=== PATIENT | female | born 1950 | race Caucasian/White ===

== ENCOUNTER 2024-03-17 05:04 | Observation (INO) ==
--- NOTE | 2024-02-07 15:32 | PAT Medication Instructions ---
Medication Instructions Date of Service February 07, 2024 Home Medications apixaban 5 mg tablet (Eliquis) 5 mg PO BID atorvastatin 20 mg tablet 20 mg PO QAM citalopram 20 mg tablet 10 mg PO HS hydroxyzine HCl 25 mg tablet 25 mg PO BID PRN levothyroxine 75 mcg tablet (Synthroid) 75 mcg PO QAM lisinopril 20 mg tablet 20 mg PO HS metoprolol tartrate 25 mg tablet 12.5 mg PO BID mometasone 0.1 % topical cream 1 applic topical DAILY PRN potassium chloride 10 mEq tablet,extended release 10 meq PO BID rimegepant 75 mg disintegrating tablet (Nurtec ODT) 75 mg PO UD PRN triamcinolone acetonide 0.025 % topical cream 1 applic topical BID PRN valacyclovir 1 gram tablet (Valtrex) 1,000 mg PO UD PRN Continue as directed rimegepant 75 mg disintegrating tablet (Nurtec ODT) 75 mg PO UD PRN (if needed) valacyclovir 1 gram tablet (Valtrex) 1,000 mg PO UD PRN(if needed) ASK your prescriber and surgeon apixaban 5 mg tablet (Eliquis) 5 mg PO BID(in order for spinal or epidural anesthesia, Eliquis needs to be stopped 72 hours/3 days before surgery. Please check if okay with doctor that prescribes this to you) STOP taking 24 hours before surgery mometasone 0.1 % topical cream 1 applic topical DAILY ND triamcinolone acetonide 0.025 % topical cream 1 applic topical BID PRN DO NOT take the morning of surgery hydroxyzine HCl 25 mg tablet 25 mg PO BID PRN potassium chloride 10 mEq tablet,extended release 10 meq PO BID Take morning of surgery With a small sip of water, OTHERWISE NOTHING TO EAT OR DRINK AFTER MIDNIGHT: atorvastatin 20 mg tablet 20 mg PO QAM levothyroxine 75 mcg tablet (Synthroid) 75 mcg PO QAM metoprolol tartrate 25 mg tablet 12.5 mg PO BID Take evening before surgery citalopram 20 mg tablet 10 mg PO HS hydroxyzine HCl 25 mg tablet 25 mg PO BID PRN(if needed) lisinopril 20 mg tablet 20 mg PO HS metoprolol tartrate 25 mg tablet 12.5 mg PO BID potassium chloride 10 mEq tablet,extended release 10 meq PO BID Other Notes If you have any questions please call us at [phone] or [phone] or [phone] or [phone]
--- NOTE | 2024-02-21 14:12 | Anesthesiology Consultation ---
Date of Service February 21, 2024 Assessment & Plan (1) Encounter for pre-operative examination: - awaiting PCP response to optimization form regarding abnormal CXR, Dr. Nel Martinez [facility] [place]. Surgeon's office and patient made aware, she denied questions or concerns. - will request most recent cardiology office note (Dr. Hay Phelps). - patient reported chlorhexidine allergy at PAT appointment. This was added to allergy list and surgeon's office made aware. Patient was NOT provided with chlorhexidine wipes. - Outpatient joint assessment: Patient is currently scheduled for inpatient pathway. If re-evaluated and patient/surgeon requests outpatient pathway, patient is not acceptable candidate for outpatient joint program from anesthesia standpoint. Chart Review Chart Review: Pending: Refer to Additional Notes / Consult section and Patient seen in Pre Admission Testing Teaching & Discussion Pre-Anesthesia Teaching/Discussion Notes: Instructed NPO after midnight before surgery, except medications with 15 cc of water. Medication instructions provided according to the [facility] guidelines. History Surgery Operation Date: 03/17/24 12:15 Proposed Procedures p Left Anterior Total Hip Arthroplasty - Rafael Douglas DO Height/Weight Height: 5 ft 4 in Weight: 82.2 kg Allergies Allergy/AdvReac Type Severity Reaction Status Date / Time butorphanol [From Stadol] Allergy Severe auditory Verified 02/06/24 15:13 hallucinations dexamethasone Allergy Severe intense Verified 02/21/24 14:22 pelvic burning chlorhexidine Allergy Intermediate Itching Verified 02/21/24 14:46 morphine Allergy Intermediate itchiness Verified 02/06/24 15:13 latex Allergy Mild itching/blister Verified 02/21/24 14:22 skin ondansetron [From Zofran] AdvReac Intermediate IV Verified 02/21/24 14:40 zofran-gastroparesis per patient adhesive tape AdvReac Mild Itching Verified 02/06/24 15:15 ivory Allergy Intermediate Hives Uncoded 02/21/24 14:47 anti-depressants AdvReac Intermediate does not Uncoded 02/21/24 14:31 feel well when taking-fatigue, "brain fog" cheap metal AdvReac Intermediate blistering Uncoded 02/06/24 15:13 with itching Medications Home Medications Medication Instructions Recorded Confirmed Last Taken apixaban 5 mg tablet (Eliquis) 5 mg PO BID 02/06/24 02/06/24 Unknown atorvastatin 20 mg tablet 20 mg PO QAM 02/06/24 02/06/24 Unknown citalopram 20 mg tablet 10 mg PO HS 02/06/24 02/06/24 Unknown hydroxyzine HCl 25 mg tablet 25 mg PO BID PRN Itching 02/06/24 02/06/24 Unknown levothyroxine 75 mcg tablet 75 mcg PO QAM 02/06/24 02/06/24 Unknown (Synthroid) lisinopril 20 mg tablet 20 mg PO HS 02/06/24 02/06/24 Unknown metoprolol tartrate 25 mg tablet 12.5 mg PO BID 02/06/24 02/06/24 Unknown mometasone 0.1 % topical cream 1 applic topical DAILY PRN Dry Skin 02/06/24 02/06/24 Unknown potassium chloride 10 mEq 10 meq PO BID 02/06/24 02/06/24 Unknown tablet,extended release rimegepant 75 mg disintegrating 75 mg PO UD PRN Migraine Headache 02/06/24 02/06/24 Unknown tablet (Nurtec ODT) triamcinolone acetonide 0.025 % 1 applic topical BID PRN Dry Skin 02/06/24 02/06/24 Unknown topical cream valacyclovir 1 gram tablet 1,000 mg PO UD PRN Cold Sores 02/06/24 02/06/24 Unknown (Valtrex) ondansetron HCl 8 mg tablet 8 mg PO Q8H 02/08/24 02/08/24 Unknown Past Medical History Medical History (Updated 02/22/24 @ 08:57 by Ольга Suazo PA-C) Ankylosing spondylitis Aortic valve regurgitation Arthritis Atrial fibrillation followed by Dr. Guido>Rodessa Depression "situational" GERD (gastroesophageal reflux disease) controlled, stable per pt History of asthma as a child>no inhaler History of colitis Hyperlipidemia Hypertension controlled, stable per pt Hypothyroidism Migraine Neuropathy left lower leg>mild Post-nasal drip chronic cough Pulmonary lesion Spinal stenosis see lumbar 11/2023 MRI Tricuspid regurgitation Urinary urgency Patient denies h/o stroke, seizures, heart attack, heart failure, DM, blood clots/DVTs or blood transfusions. Exercise / Class Metabolic Activity III < 4 Walking/Shop/Light housework (denies chest discomfort or shortness of breath with usual activities) Past Family History Family History Other No family history of adverse response to anesthesia Past Surgical History Surgical History H/O hemorrhoidectomy History of anesthesia reaction nausea and headache History of appendectomy History of cardiac ablation for atrial fibrillation (01/2023) done at [facility] History of cataract surgery right/left History of cholecystectomy History of colonoscopy History of dilatation and curettage "several" History of esophagogastroduodenoscopy (EGD) History of hysterectomy History of nasal surgery History of tonsillectomy and adenoidectomy History of tooth extraction Spigelian hernia repaired Strabismus repaired>"adult onset" Past Anesthesia History No Family Hx of Anesthesia Complications History of PONV No Hx of Motion Sickness and History of PONV Social History Smoking Status: Never smoker Do You Dip or Chew Tobacco: No Hx Alcohol Use: Yes alcohol intake frequency: holidays/special occasions only substance use type: does not use Review of Systems Occasionally wakes snoring which she attributes to postnasal drip-denies snoring or witnessed apneas-no sleep study. Patient denies chest pain, shortness of breath, dyspnea on exertion, fever, chills, wheezing, or palpitations. Physical Exam Vital Signs Vitals BP 138/82 P 49 TEMP 97.8 SP02 96% on RA RESP 18 Physical Patient resting comfortably in chair in no acute distress, alert and oriented, responding appropriately throughout visit Full cervical extension range of motion without pain TMD 3.5 finger breadths Mallampati Score 2 Dentition: one cap and one lower chipped tooth; denies loose teeth, crowns, implants or bridges Lungs: normal respiratory effort. Good air movement, clear throughout to auscultation, no adventitious breath sounds Cardiac: regular rate and rhythm, no murmurs noted Carotid arteries: negative bruit bilat Lab Results Anesthesia Preop Results Results Anesthesia Widget: WBC 7.04 K/ul (4.8-10.8) 02/21/24 Hgb 11.4 g/dl (12.0-16.0) L 02/21/24 Hct 35.0 % (37.0-47.0) L 02/21/24 Plt 291 K/uL (130-400) 02/21/24 Na 140 mmol/L (136-145) 02/21/24 K 4.4 mmol/L (3.5-5.1) 02/21/24 Cl 108 mmol/L (98-107) H 02/21/24 CO2 28 mmol/L (21-32) 02/21/24 BUN 17 mg/dl (6-23) 02/21/24 Creat 0.82 mg/dl (0.6-1.2) 02/21/24 Glucose Level 86 mg/dl (70-99(Fasting)) 02/21/24 PT 10.5 Seconds (9.0-12.0) 02/21/24 PTT 28 Seconds (21-31) 02/21/24 INR 1.0 (0.9-1.1) 02/21/24 Blood Type B Positive 02/21/24 Antibody Screen NEGATIVE 02/21/24 Testing Electrocardiogram Date: 02/21/24 Sinus bradycardia, rate 49 bpm Nonspecific T wave abnormality Chest X-Ray Date: 02/21/24 1. Bilateral pulmonary venous congestion 2. Round opacity in left mid zone-will require further evaluation with CT. 3. Moderate cardiomegaly with arteriosclerotic changes in the thoracic aorta.
--- NOTE | 2024-03-13 13:27 | History & Physical Report ---
Date of Service March 13, 2024 Assessment & Plan (1) Osteoarthritis of left hip: We will proceed with a left anterior total of arthroplasty. Postoperatively she will be started on aspirin for DVT prophylaxis and kept overnight in the hospital for postop medical management. She plans to have the hospital set up home health for discharge. History of Present Illness Chief Complaint: Osteoarthritis of the left hip. Primary Care Provider: Nel Martinez MD Delfina is a pleasant 73-year-old female who has been dealing with chronic increasing left hip and groin pain. She has been seen by other providers. She has been diagnosed with osteoarthritis of her left hip. She is really struggling with her hip. She is having trouble going up and down stairs. She has constant pain. After failed conservative treatment, she has elected proceed with a left anterior total of arthroplasty. Allergies Allergy/AdvReac Type Severity Reaction Status Date / Time butorphanol [From Stadol] Allergy Severe auditory Verified 02/06/24 15:13 hallucinations dexamethasone Allergy Severe intense Verified 02/21/24 14:22 pelvic burning chlorhexidine Allergy Intermediate Itching Verified 02/21/24 14:46 morphine Allergy Intermediate itchiness Verified 02/06/24 15:13 latex Allergy Mild itching/blister Verified 02/21/24 14:22 skin ondansetron [From Zofran] AdvReac Intermediate IV Verified 02/21/24 14:40 zofran-gastroparesis per patient adhesive tape AdvReac Mild Itching Verified 02/06/24 15:15 ivory Allergy Intermediate Hives Uncoded 02/21/24 14:47 anti-depressants AdvReac Intermediate does not Uncoded 02/21/24 14:31 feel well when taking-fatigue, "brain fog" cheap metal AdvReac Intermediate blistering Uncoded 02/06/24 15:13 with itching Home Medications Medication Instructions Recorded Confirmed Type apixaban 5 mg tablet (Eliquis) 5 mg PO BID 02/06/24 02/06/24 History atorvastatin 20 mg tablet 20 mg PO QAM 02/06/24 02/06/24 History citalopram 20 mg tablet 10 mg PO HS 02/06/24 02/06/24 History hydroxyzine HCl 25 mg tablet 25 mg PO BID PRN Itching 02/06/24 02/06/24 History levothyroxine 75 mcg tablet 75 mcg PO QAM 02/06/24 02/06/24 History (Synthroid) lisinopril 20 mg tablet 20 mg PO HS 02/06/24 02/06/24 History metoprolol tartrate 25 mg tablet 12.5 mg PO BID 02/06/24 02/06/24 History mometasone 0.1 % topical cream 1 applic topical DAILY PRN Dry Skin 02/06/24 02/06/24 History potassium chloride 10 mEq 10 meq PO BID 02/06/24 02/06/24 History tablet,extended release rimegepant 75 mg disintegrating 75 mg PO UD PRN Migraine Headache 02/06/24 02/06/24 History tablet (Nurtec ODT) triamcinolone acetonide 0.025 % 1 applic topical BID PRN Dry Skin 02/06/24 02/06/24 History topical cream valacyclovir 1 gram tablet 1,000 mg PO UD PRN Cold Sores 02/06/24 02/06/24 History (Valtrex) ondansetron HCl 8 mg tablet 8 mg PO Q8H 02/08/24 02/08/24 History Past Med/Surg History Problem List Encounter for pre-operative examination Osteoarthritis of left hip Medical History Pulmonary lesion GERD (gastroesophageal reflux disease) controlled, stable per pt Tricuspid regurgitation Aortic valve regurgitation Spinal stenosis see lumbar 11/2023 MRI Ankylosing spondylitis Arthritis Urinary urgency History of colitis Hypothyroidism Depression "situational" Neuropathy left lower leg>mild Migraine Atrial fibrillation followed by Dr. Guido>Lenin Hypertension controlled, stable per pt Hyperlipidemia Post-nasal drip chronic cough History of asthma as a child>no inhaler Surgical History History of cataract surgery right/left History of anesthesia reaction nausea and headache H/O hemorrhoidectomy History of dilatation and curettage "several" History of hysterectomy History of esophagogastroduodenoscopy (EGD) History of colonoscopy Spigelian hernia repaired History of cholecystectomy History of appendectomy History of tooth extraction History of tonsillectomy and adenoidectomy History of nasal surgery Strabismus repaired>"adult onset" History of cardiac ablation for atrial fibrillation (01/2023) done at [facility] Family History Other No family history of adverse response to anesthesia Social History Smoking Status: Never smoker Second Hand Exposure: Yes (as a child); Do You Dip or Chew Tobacco: No; Hx Alcohol Use: Yes Preferred Language: Maori Assistant Maintenance Manager Required: No Beliefs That Will Affect Care: None Current Living Situation: Alone Feels Safe at Home: Yes Safety Concerns: Feels Safe At This Time Assistive Devices: Glasses Assistive Devices Comment: reading glasses Review of Systems All systems reviewed & are unremarkable except as noted in HPI & below. Physical Exam On physical exam of the left hip, she has decreased range of motion. She has pain with forced internal/external rotation. All of her pain is located in the groin.. Constitutional WD/WN, vitals as above Eyes PERRL, conjunctivae normal, anicteric sclerae ENMT external ear and nose normal, oropharynx normal Neck trachea midline, no thyromegaly Respiratory normal respiratory effort Cardiovascular RRR, no murmur, no edema Gastrointestinal (Abdomen) normal bowel sounds, soft, nontender, no hepatosplenomegaly Psychiatric A+Ox3, euthymic affect Results & Data Results & Data Laboratory Results . Diagnostic Findings X-rays of the left hip show advanced osteoarthritis with joint space narrowing, osteophyte formation, and [id number] articulation. PG Care Time/CCT Total # of Minutes Spent Total Time Spent with Patient: Total time spent is greater than 50% in coordination of care (as documented) at patient's floor/unit and/or counseling patient: Coding Level of Care Code None Diagnoses Osteoarthritis of left hip M16.12
[2024-03-17] MEDS: LR 60ML/HR IV SCH (05:38)
[2024-03-17] MEDS: ACETAMINOPHEN 500 MG TAB PO SCH ×2 (05:38→16:08)
[2024-03-17] MEDS: GABAPENTIN 300 MG CAP PO SCH (05:38)
[2024-03-17] MEDS: FAMOTIDINE 20 MG TAB PO SCH (05:38)
[2024-03-17] MEDS: LR 500ML BOLUS, THEN 15ML/HR IV SCH (05:55)
[2024-03-17] MEDS: dexAMETHasone**PF** 10 MG/ML VIAL IV SCH (06:07)
[2024-03-17] MEDS ORDERED: ROPIVACAINE 0.5% 5 MG/ML 30 ML VIAL ONE (06:23)
--- NOTE | 2024-03-17 06:34 | History & Physical Bridge Note ---
Date of Service March 17, 2024 History & Physical Bridge Note I have examined the patient, reviewed the History & Physical and in the interval since the performance of the History & Physical I have noted the following changes of clinical significance: no changes noted
[2024-03-17] MEDS ORDERED: ONDANSETRON INJ 2 MG/ML 2 ML VIAL IV PRN ×2 (06:41→10:34)
[2024-03-17] MEDS ORDERED: ePHEDrine sulfate 50 MG/ML AMP IV PRN (06:41)
[2024-03-17] MEDS ORDERED: MIDAZOLAM HCL 1 MG/ML 2ML VIAL ONE (06:41)
[2024-03-17] MEDS ORDERED: ATROPINE SULFATE 0.1 MG/ML 10ML SYR IV PRN (06:41)
[2024-03-17] MEDS ORDERED: KETOROLAC 30 MG/ML VIAL IV PRN (06:41)
[2024-03-17] MEDS ORDERED: HYDROmorphone INJ 1 MG/ML SYRINGE IV PRN (06:41)
[2024-03-17] MEDS ORDERED: PHENYLEPHRINE 100MCG/ML 5ML SYR ONE (06:43)
[2024-03-17] MEDS: TRANEXAMIC ACID 1,000 MG **IV Pre-op IV SCH (06:49)
[2024-03-17] MEDS: ceFAZolin 2000MG 2,000 MG/15 ML SYR IV SCH (06:59)
[2024-03-17] MEDS ORDERED: PROPOFOL IV EMULSION 10 MG/ML 20 ML VIAL IV ONE (07:05)
[2024-03-17] MEDS ORDERED: KETAMINE HCL 10MG/ML SYR ONE (07:05)
[2024-03-17] MEDS ORDERED: fentaNYL citrate PF 100 MCG/2 ML VIAL ONE (07:12)
[2024-03-17] MEDS: ORTHO JOINT ANESTHETIC ONE (07:35)
[2024-03-17] MEDS: TRANEXAMIC ACID 1,000 MG **IV Intra-op IV SCH (08:04)
[2024-03-17] MEDS: ROPIV 0.5% 246mg, Ketorolac 30mg, EPINEPHrine 0.5mg in NSS INFIL SCH (08:04)
--- NOTE | 2024-03-17 08:06 | Operative Report ---
PG Post Operative Report Pre & Post Diagnosis Operation Date: 03/17/24 07:00 Pre-Op Diagnosis: Osteoarthritis of left hip Post-Op Diagnosis: Osteoarthritis of left hip I identified the patient and participated in the time-out.: Yes Procedure Operation Date: 03/17/24 07:00 Actual Procedures p Left Anterior Total Hip Arthroplasty(Left) - Rafael Douglas DO Surgeon Rafael Douglas DO Robotics Mechanic Ovidio Robbins PA-C Estimated Blood Loss 150 Findings Consistent with Post-Op Diagnosis Specimens Left femoral head Description of Procedure Implants used I used a ZimmerBiomet total hip arthroplasty system with a size 2 standard offset Avenir Complete stem, a 48 mm G7 cup with a 25mm screw, an E1 polyethylene liner, a 32 mm ceramic head with a 0 neck. Delfina arrived at the hospital for the above procedure. She was seen in the preoperative holding area and the operative extremity was identified and signed. She was given a spinal anesthetic, a preoperative antibiotic, and TXA. She was then taken back to the operating room and laid on the table in the supine position. She was given basic sedation. The operative leg was secured to a Puristst leg positioner. The hip was then prepped and draped in sterile fashion. A timeout was done and the patient and the operative extremity was properly identified. An anterior approach was used. Dissection was taken down through the fascia and the tensor muscle belly was retracted laterally and the rectus was retracted medially. The circumflex vessels were identified and ligated. The capsule was then incised and tagged for later repair. The femoral neck was then cut and the femoral head was removed. The acetabulum was exposed. Time was spent doing a complete circumferential labral release. Sequential reaming of the acetabulum up to a size 47 reamer was done. Final reamings were done under fluoroscopy to ensure appropriate version. A Biomet 48 mm G7 cup was then impacted into place. A single 25 mm screw was placed. The E1 polyethylene liner was then snapped into place. Surrounding soft tissues were then injected with 100 cc of an orthopedic pain control cocktail. The proximal femur was then exposed. Sequential broaching up to a size 2 broach was done. Off that broach a size 32 head with a 0 neck was trialed. The hip was reduced and fluoroscopic images showed anatomic alignment of the implants in acceptable length. The broach was removed. The final size 2 standard offset Avenir Complete stem was then impacted into place. A ceramic 32 mm head with a 0 neck was then impacted onto the stem and the hip was reduced. Final fluoroscopic images showed anatomic alignment of the hip. The capsule was then closed with #1 Vicryl suture. A dilute betadyne lavage was then done for 3 minutes. The joint was then irrigated with normal saline solution. The fascia was closed with #1 PDS suture. Skin was closed with 2-0 Vicryl, ina, and a Silverlon dressing. She was then transferred to a hospital bed and taken to the post anesthesia care unit in stable condition. She tolerated the procedure well. Ovidio Robbins PA-C, was present for the entire procedure. He was critical for patient positioning, prepping, draping, retraction exposure, wound closure and application of sterile dressing. I attest to the content of the Intraoperative Record and any orders documented therein. Any exceptions are noted below.
[2024-03-17] MEDS ORDERED: ePHEDrine sulfate 50 MG/5 ML SYR ONE (08:11)
[2024-03-17] MEDS: PROMETHAZINE HCL INJ 25 MG/ML 1 ML VIAL ONE (08:57)
[2024-03-17] MEDS: PROMETHAZINE 6.25 MG/50.25 ML BAG IV STA (08:58)
--- NOTE | 2024-03-17 09:52 | Anesthesiology Progress Note ---
Date of Service March 17, 2024 Anesthesia Post Procedure Vital Signs Vital Signs: Temp Pulse Pulse Resp BP Pulse Ox O2 Del Method 03/17/24 09:50 59 L 22 115/61 98 Room Air 03/17/24 09:40 60 13 109/51 L 97 Room Air 03/17/24 09:30 60 14 111/55 L 99 Room Air 03/17/24 09:20 67 18 134/60 99 Room Air 03/17/24 09:10 67 16 119/63 100 Room Air 03/17/24 09:00 67 16 141/66 H 100 Oxymask 03/17/24 08:50 64 16 137/60 100 Oxymask 03/17/24 08:40 63 16 134/59 L 100 Oxymask 03/17/24 08:30 36.4 C L 68 16 123/81 100 Oxymask 03/17/24 05:39 36.4 C L 60 20 155/74 H 96 Room Air O2 Flow Rate 03/17/24 09:50 03/17/24 09:40 03/17/24 09:30 03/17/24 09:20 03/17/24 09:10 03/17/24 09:00 4 03/17/24 08:50 4 03/17/24 08:40 4 03/17/24 08:30 6 03/17/24 05:39 Pain Intensity Left Hip: Pain Intensity: 2 Transfer of Care Handoff Completed per policy Notes Mental Status: alert / awake / arousable Patient Amnestic to Procedure: Yes Nausea / Vomiting: adequately controlled Pain: adequately controlled Airway Patency, RR, SpO2: stable & adequate BP & HR: stable & adequate Hydration State: stable & adequate Neuraxial Anesthesia: was administered and sensory block is resolving Anesthetic Complications: no major complications apparent
--- NOTE | 2024-03-17 10:01 | XRay Report ---
XR hip 1V LT w pelvis CLINICAL HISTORY: Postoperative evaluation. COMPARISON: Left hip radiographs December 11, 2023. FINDINGS: Alignment of the total left hip arthroplasty is anatomic. There is no periprosthetic fract ure or unexpected radiopaque foreign body. There are skin ina. IMPRESSION: Expected findings following total left hip arthroplasty. ACT 112: Negative or not required by law. Electronically signed by: Yohan Da Silva M.D. 03/17/2024 9:24 AM
--- NOTE | 2024-03-17 10:32 | Fluoroscopy Report ---
FL hip LT 1V CLINICAL HISTORY: LEFT ANTERIOR HIPpostop COMPARISON STUDY: None FLUOROSCOPY TIME: 16 seconds FLUOROSCOPY IMAGES: 1 EXPOSURE DOSE: 1.76 mGy FINDINGS: Single C-arm spot film of the postop hip demonstrate satisfactory alignment and positioning of the prosthetic components of the total left hip arthroplasty. IMPRESSION: Satisfactory single view postop hip ACT 112: Negative or not required by law. Electronically signed by: Linda Sharma M.D. 03/17/2024 10:30 AM
[2024-03-17] MEDS ORDERED: NALOXONE HCL 0.4 MG/1 ML VIAL/CARP IV PRN (10:34)
[2024-03-17] MEDS ORDERED: MAGNESIUM HYDROXIDE SUSP 30 ML UDC PO PRN (10:34)
[2024-03-17] MEDS ORDERED: HYDROmorphone INJ 0.5 MG/0.5 ML SYR IV PRN (10:34)
[2024-03-17] MEDS ORDERED: bisacodyL 10 MG SUPP PR PRN (10:34)
[2024-03-17] MEDS: oxyCODONE HCL IR 5 MG TAB (IMMEDIATE RELEASE) PO PRN (11:43)
[2024-03-17] MEDS: DOCUSATE SODIUM 100 MG CAP PO SCH (11:46)
[2024-03-17] MEDS: KETOROLAC TROMETHAMINE 15 MG/ML VIAL IV SCH (11:46)
[2024-03-17] MEDS: METOPROLOL TARTRATE 25 MG TAB PO SCH (11:46)
[2024-03-17] MEDS: ATORVASTATIN 20 MG TAB PO SCH (11:47)
[2024-03-17] MEDS: MULTIVITAMIN TAB PO SCH (11:47)
[2024-03-17] MEDS: LEVOTHYROXINE SODIUM 75 MCG TABLET PO SCH (13:26)
[2024-03-17] MEDS: ceFAZolin 1000MG 1,000 MG/7.5 ML SYR IV SCH (16:09)
[2024-03-17] MEDS: METOCLOPRAMIDE HCL INJ 5 MG/ML 2 ML VIAL IV PRN (16:23)
[2024-03-17] MEDS: SENNA 8.6 MG TAB PO SCH (20:31)
[2024-03-17] MEDS: CITALOPRAM 20 MG TAB PO SCH (20:32)
[2024-03-17] MEDS: lisinopril 20 MG TAB PO SCH (20:33)
[2024-03-18] MEDS: APIXABAN 5 MG TABLET PO SCH (07:58)
[2024-03-18] MEDS: dexAMETHasone 4 MG TAB PO SCH (07:58)
--- NOTE | 2024-03-18 10:52 | Orthopedic Progress Note ---
Date of Service March 18, 2024 Assessment & Plan (1) Status post left hip replacement: Assessment: Status post left anterior total hip arthroplasty. Plan: Overall, she is doing quite well today with good pain control left hip. She will work with physical therapy later this morning to work on ambulation and range of motion exercises. She is on Eliquis for DVT prophylaxis which was restarted today. She can be discharged home later this morning pending formal physical therapy evaluation recommendations. Her dressing will remain in place for 7 days. She will follow-up with orthopedics in 2 weeks for postoperative management or sooner if needed. She verbalized understanding agrees with this plan. Ashley . Delfina was seen this morning resting comfortably no apparent distress. She notes that her pain is well-controlled to the left hip. She has been up and ambulating without significant issues. She has yet to work physical therapy this morning. She denies any concerns with surgical incision site. Denies any active bleeding, discharge, or signs of infection. She denies any low back pain, distal extremity pain, numbness/ting, or paresthesias. She denies any other concerns today. Review of Systems All systems reviewed & are unremarkable except as noted in HPI & below. Physical Exam . On physical examination of the left hip: Dressings are clean, dry, and intact with no signs of active bleeding, discharge, or signs of infection. Her leg is out in full extension. Limited range of motion and strength secondary to postoperative stiffness and soreness. Calf soft nontender to palpation. Negative Homans' sign. Intact plantarflexion dorsiflexion of the left ankle. +2 DP and PT pulses. Less than 2-second capillary refill. Normal sensation. Neurovascular intact. Results & Data Results & Data Laboratory Results . Diagnostic Findings . Hip X-Ray 03/17/24 07:00 FL hip LT 1V CLINICAL HISTORY: LEFT ANTERIOR HIPpostop COMPARISON STUDY: None FLUOROSCOPY TIME: 16 seconds FLUOROSCOPY IMAGES: 1 EXPOSURE DOSE: 1.76 mGy FINDINGS: Single C-arm spot film of the postop hip demonstrate satisfactory alignment and positioning of the prosthetic components of the total left hip arthroplasty. IMPRESSION: Satisfactory single view postop hip ACT 112: Negative or not required by law. Electronically signed by: Linda Sharma M.D. 03/17/2024 10:30 AM Hip/Pelvis X-Ray 03/17/24 08:34 XR hip 1V LT w pelvis CLINICAL HISTORY: Postoperative evaluation. COMPARISON: Left hip radiographs December 11, 2023. FINDINGS: Alignment of the total left hip arthroplasty is anatomic. There is no periprosthetic fracture or unexpected radiopaque foreign body. There are skin ina. IMPRESSION: Expected findings following total left hip arthroplasty. ACT 112: Negative or not required by law. Electronically signed by: Yohan Da Silva M.D. 03/17/2024 9:24 AM PG Care Time/CCT Total # of Minutes Spent Total Time Spent with Patient: Total time spent is greater than 50% in coordination of care (as documented) at patient's floor/unit and/or counseling patient: Coding Level of Care Code 72763 Post Operative Follow-Up Diagnoses Status post left hip replacement Z96.642
--- NOTE | 2024-03-18 10:53 | Discharge Summary ---
Date of Service March 18, 2024 Admission HPI (Per Admitting) Delfina is a pleasant 73-year-old female who has been dealing with chronic increasing left hip and groin pain. She has been seen by other providers. She has been diagnosed with osteoarthritis of her left hip. She is really struggling with her hip. She is having trouble going up and down stairs. She has constant pain. After failed conservative treatment, she has elected proceed with a left anterior total of arthroplasty. Admission Exam (Per Admitting) On physical exam of the left hip, she has decreased range of motion. She has pain with forced internal/external rotation. All of her pain is located in the groin.. Principal Diagnosis Same as "Discharge Diagnosis" noted below under Discharge Instructions. Discharge Exam . On physical examination of the left hip: Dressings are clean, dry, and intact with no signs of active bleeding, discharge, or signs of infection. Her leg is out in full extension. Limited range of motion and strength secondary to postoperative stiffness and soreness. Calf soft nontender to palpation. Negative Homans' sign. Intact plantarflexion dorsiflexion of the left ankle. +2 DP and PT pulses. Less than 2-second capillary refill. Normal sensation. Neurovascular intact. Discharge Data Procedures Performed Operation Date: 03/17/24 07:00 Actual Procedures p Left Anterior Total Hip Arthroplasty(Left) - Rafael Douglas DO Ordered Studies 03/17/24 07:00 FL hip LT 1V Routine Hospital Course (1) Status post left hip replacement: On March 17, 2024 Saritha arrived at [facility] and underwent a left anterior total hip arthroplasty performed by Dr. Douglas with no complications. She has spinal anesthetic. Postoperatively, she was transferred to the PACU for immediate postoperative management and then transferred to the general orthopedic floors and stable condition. Her hospital course was u neventful. On postoperative day #1, her vital signs are stable and her pain is well-controlled. She has restarted on her Eliquis for DVT prophylaxis. She participated well with physical therapy working on ambulation and range of motion exercises. She was then discharged home in stable condition. She will follow-up with orthopedics in 2 weeks for postoperative management. PG Care Time/CCT Total # of Minutes Spent Total Time Spent with Patient: Total time spent is greater than 50% in coordination of care (as documented) at patient's floor/unit and/or counseling patient: Discharge Plan Discharge Items Patient Disposition: Home - Home Health Services Reason For Visit: Left Hip Arthritis Discharge Diagnosis: Same Activity: Per Instructions section Non-emergency contact: Surgeon Call non-emergency contact if: your temperature is above 101.5, your wound has increased redness, your wound has increased drainage and your wound pain has increased Follow-up/Referrals: Nel Martinez MD [Primary Care Provider] - Diet: Regular Addtl Attending Provider Instructions: Activity and Therapy Recommendations: * If you are using [facility] then therapy will be provided at your home until they feel you have accomplished all of your goals. * If you are using [facility] then Physical Therapy will be provided until they feel you are ready to start Outpatient Physical Therapy. * If you are not using home therapy then Outpatient Physical Therapy should start about 3-5 days from your day of surgery. Therapy will last about 6-10 weeks * You were shown a series of exercises in the hospital. Do these exercises three times each day including the exercises you were shown in physical therapy. * Get up and walk several times each day.~ For the first four weeks, try not to stand or walk for more than one hour at a time. If you do stand or walk for more than one hour, you will not hurt anything, but your leg will likely swell.~~ * As you feel comfortable, you may change from the walker or crutches to a cane and~then to independent walking. Medications: * Narcotic You will likely be sent home from the hospital with a prescription for the narcotic pain medication that worked best throughout your stay. * Cefadroxil -take the antibiotic twice a day for 10 days to help prevent infection. * Aspirin Most patients will be required to take Aspirin 81mg twice a day for 6 weeks after surgery. This is obtained [id number] and a prescription is not necessary. * Other medications may be prescribed for specific circumstances. If you have any questions, please call the office at . * Resume previous home medications unless otherwise instructed TEDs/Elastic Stockings: The white elastic stockings help limit swelling and prevent blood clots from forming in your legs. The more you wear them, the more they work. Wear them for six weeks. Dressing Care: Leave the Silverlon dressing in place for 7 days. After 7 days you may remove the dressing. If the incision is not draining then you may leave the ina open to air. If there is a little bit of drainage or if the ina are getting stuck on your clothing then cover the incision with a dry dressing. The ina will be removed at your 2 week follow-up appointment. Showering: You may shower with the Silverlon dressing in place. Do not let the shower spray hit the dressing directly. Pat the Silverlon dressing dry. If the dressing becomes wet underneath, then simply remove the dressing. Keep the incision dry until you are 7 days out from the day of surgery. After 7 days you may remove the Silverlon dressing and shower with the ina exposed. Let soapy water run over the ina and pat them dry. Do not scrub or soak the incision. Diet: You may resume your previous diet. Things To Watch For: * Drainage from the incision site that occurs more than one week after your surgery. * Increased redness at the incision site. * Fever above 102 degrees Fahrenheit. * Unusual chest pain or shortness of breath. * Call [facility] at with any of the above problems Follow-Up Visit: Follow-up with Dr. Douglas's office 2-3 weeks after your day of surgery. We will remove your ina and answer any questions. If you have any additional questions or concerns, Dr Douglas is usually in the office at the same time and will be available An appointment was probably scheduled when you signed-up for surgery in the office. If you have any questions call Office Instructions: More detailed instructions as well as Frequently Asked Questions were provided in a folder by our office when you signed-up for surgery. Please review these instructions when you get home. If you have any further questions or concerns, please feel free to call the office at [phone] Pending Studies at Discharge: No Stand-Alone Forms: [facility], Smoking Cessation Medications and DC Order Prescriptions: New oxycodone 5 mg Tablet 5 mg PO Q6H PRN (Reason: pain) Qty: 30 0RF cefadroxil 500 mg capsule 500 mg PO BID 10 Days Qty: 20 0RF Continued ondansetron HCl 8 mg tablet 8 mg PO Q8H atorvastatin 20 mg Tablet 20 mg PO QAM valacyclovir [Valtrex] 1 gram Tablet 1,000 mg PO UD PRN (Reason: Cold Sores) lisinopril 20 mg Tablet 20 mg PO HS potassium chloride 10 mEq Tablet Extended Release 10 meq PO BID levothyroxine [Synthroid] 75 mcg Tablet 75 mcg PO QAM citalopram 20 mg Tablet 10 mg PO HS triamcinolone acetonide 0.025 % Cream 1 applic TOPICAL BID PRN (Reason: Dry Skin) hydroxyzine HCl 25 mg Tablet 25 mg PO BID PRN (Reason: Itching) mometasone 0.1 % Cream 1 applic TOPICAL DAILY PRN (Reason: Dry Skin) metoprolol tartrate 25 mg Tablet 12.5 mg PO BID Eliquis 5 mg Tablet 5 mg PO BID Nurtec ODT 75 mg Tablet,Disintegrating 75 mg PO UD PRN (Reason: Migraine Headache) Admission Data Admit Date/Time: 03/17/24 08:33 Attending Provider: Rafael Douglas Admit Provider: Rafael Douglas Primary Care Provider: Nel Martinez
[2024-03-18 19:10] VITALS: O2SAT 95
[2024-03-19] MEDS: hydrOXYzine HCl 25 MG TAB PO PRN (00:13)
[2024-03-19] MEDS: traMADol HCL 50 MG TABLET PO PRN (05:41)
[2024-03-19 07:24] VITALS: BP 113/58; PULSE 61; RESP 16; TEMP 98.2
--- NOTE | 2024-03-19 14:41 | Orthopedic Progress Note ---
Date of Service March 19, 2024 Assessment & Plan (1) Status post left hip replacement: Plan 73-year-old woman POD# 2 s/p left anterior total hip replacement, doing well overall. Pain is relatively well-controlled. Medically stable. Prosthetic hip is located. She is neurologically intact. Plan: 1. DVT prophylaxis w/ knee-high TEDs, SCDs, Eliquis 5 mg BID. 2. PT/OT as tolerated. WBAT on left LE. Left anterior approach total hip precautions/protocol. Encourage heel slides, SLR, full knee extension. 3. Pain control doing well with current pain regimen; has pain medicine prescription for home use. 4. Disposition - plan to D/C home w/ home health care PT; transportation to arrive at 11 AM via office of aging. 5. F/u as scheduled w/ first post-op visit. Admission and Anticipated Discharge Date Admission Date: March 17, 2024 Subjective Patient is POD# 2 s/p left anterior total hip arthroplasty by Dr. Douglas on 03/17/2024. Patient says her pain is well-controlled this morning with use of as needed pain medication. Denies CP, SOB, N/V, L LE paresthesia. She has home health care arranged to come to the house for therapy. Patient says that she will be ready to go home today; she has transportation to home arranged with the office of aging to pick her up at 11 AM today. Physical Exam Physical Exam: GENERAL: AA&Ox3, NAD. Pleasant, affect is calm. Lying in bed and appears comfortable. RESPIRATORY: Normal respiratory effort with no signs of distress. CHEST/AXILLA: Chest movement symmetrical. No deformities noted. CARDIOVASCULAR: No edema noted. SKIN: Sunshine, warm and dry. MS/EXTREMITY: Anterior hip dressing c/d/i; saturation is noted to the Silverlon dressing. Knee-high LIONEL hose donned to bilateral LE. Thigh is soft, supple. Leg lengths are equal. + ankle dorsi/plantarflexion. NVI distally. Calf soft/NT. PT/DP pulses intact, 2+. Results & Data Vital Signs (Past 12 Hours) Vital Signs Temp Pulse Resp BP Pulse Ox O2 Del Method 03/19/24 07:24 36.8 C 61 16 113/58 L 95 Room Air
== END 2024-03-19 10:45 | disposition home health service (06) ==
LOC: ASU 05:04 → 3E 05:04

== ENCOUNTER 2025-01-05 06:51 | Inpatient (IN) ==
--- NOTE | 2024-06-25 15:30 | PAT Medication Instructions ---
Medication Instructions Date of Service June 25, 2024 Home Medications Medication Instructions Recorded oxycodone 5 mg tablet 5 mg PO Q6H PRN pain #30 tabs 04/01/24 apixaban 5 mg tablet (Eliquis) 5 mg PO BID atorvastatin 20 mg tablet 20 mg PO QAM citalopram 20 mg tablet 10 mg PO HS hydroxyzine HCl 25 mg tablet 25 mg PO BID PRN Itching levothyroxine 75 mcg tablet (Synthroid) 75 mcg PO QAM lisinopril 20 mg tablet 20 mg PO HS metoprolol tartrate 25 mg tablet 12.5 mg PO HS mometasone 0.1 % topical cream 1 applic topical DAILY PRN Dry Skin potassium chloride 10 mEq tablet,extended release 10 meq PO BID rimegepant 75 mg disintegrating tablet (Nurtec ODT) 75 mg PO UD PRN Migraine Headache triamcinolone acetonide 0.025 % topical cream 1 applic topical BID PRN Dry Skin valacyclovir 1 gram tablet (Valtrex) 1,000 mg PO UD PRN Cold Sores ondansetron HCl 8 mg tablet 8 mg PO Q8H PRN n/v oxycodone 5 mg tablet 5 mg PO Q6H PRN pain cetirizine 10 mg capsule (Zyrtec) 10 mg PO DAILY PRN Allergy Symptoms MEDICATION INSTRUCTIONS: Continue as directed mometasone 0.1 % topical cream 1 applic topical DAILY PRN Dry Skin (do not apply after bathing prior to surgery) triamcinolone acetonide 0.025 % topical cream 1 applic topical BID PRN Dry Skin (do not apply after bathing prior to surgery) valacyclovir 1 gram tablet (Valtrex) 1,000 mg PO UD PRN Cold Sores ASK your prescriber and surgeon apixaban 5 mg tablet (Eliquis) 5 mg PO BID DO NOT take the morning of surgery hydroxyzine HCl 25 mg tablet 25 mg PO BID PRN Itching cetirizine 10 mg capsule (Zyrtec) 10 mg PO DAILY PRN Allergy Symptoms potassium chloride 10 mEq tablet,extended release 10 meq PO BID Take morning of surgery With a small sip of water, OTHERWISE NOTHING TO EAT OR DRINK AFTER MIDNIGHT: levothyroxine 75 mcg tablet (Synthroid) 75 mcg PO QAM atorvastatin 20 mg tablet 20 mg PO QAM rimegepant 75 mg disintegrating tablet (Nurtec ODT) 75 mg PO UD PRN Migraine Headache ondansetron HCl 8 mg tablet 8 mg PO Q8H PRN n/v oxycodone 5 mg tablet 5 mg PO Q6H PRN pain Take evening before surgery lisinopril 20 mg tablet 20 mg PO HS metoprolol tartrate 25 mg tablet 12.5 mg PO HS citalopram 20 mg tablet 10 mg PO HS hydroxyzine HCl 25 mg tablet 25 mg PO BID PRN Itching potassium chloride 10 mEq tablet,extended release 10 meq PO BID ondansetron HCl 8 mg tablet 8 mg PO Q8H PRN n/v oxycodone 5 mg tablet 5 mg PO Q6H PRN pain Other Notes If you have any questions please call us at [phone] or [phone] or [phone] or [phone]
--- NOTE | 2024-07-04 13:56 | Anesthesiology Consultation ---
Date of Service July 04, 2024 Assessment & Plan (1) Encounter for pre-operative examination: - anemia, awaiting PCP response to optimization form, Dr. Nel Martinez. PAT testing to be faxed with optimization form. Patient made aware, she denied questions or concerns. Surgeon's office made aware. - chlorhexidine allergy: chlorhexidine wipes NOT provided at PAT visit. - cardiology office visit 10/23/23: "...paroxysmal atrial fibrillation, now status post ablation therapy...clinically doing well...no medical changes for today...return in about 1 year..." - Outpatient joint assessment: Patient is currently scheduled for inpatient pathway. If re-evaluated and patient/surgeon requests outpatient pathway, patient is not advised candidate for outpatient joint program. Chart Review Chart Review: Pending: Refer to Additional Notes / Consult section and Patient seen in Pre Admission Testing Teaching & Discussion Pre-Anesthesia Teaching/Discussion Notes: Instructed NPO after midnight before surgery, except medications with 15 cc of water. Medication instructions provided according to the PAT guidelines. History Surgery Operation Date: 07/28/24 12:00 Proposed Procedures p Right Anatomic Total Shoulder Arthroplasty versus Right Reverse Total Shoulder Arthroplasty - Rafael Douglas, Height/Weight Height: 5 ft 3 in Weight: 82.9 kg Allergies Allergy/AdvReac Type Severity Reaction Status Date / Time butorphanol [From Stadol] Allergy Severe auditory Verified 06/25/24 11:35 hallucinations dexamethasone Allergy Severe intense Verified 06/25/24 11:35 pelvic burning chlorhexidine Allergy Intermediate Itching Verified 06/25/24 11:35 morphine Allergy Intermediate itchiness Verified 06/25/24 11:35 latex Allergy Mild itching/blister Verified 06/25/24 11:35 skin ondansetron [From Zofran] AdvReac Intermediate IV Verified 06/25/24 11:35 zofran-gastroparesis per patient adhesive tape AdvReac Mild Itching Verified 06/25/24 11:35 ivory Allergy Intermediate Hives Uncoded 06/25/24 11:35 anti-depressants AdvReac Intermediate does not Uncoded 06/25/24 11:35 feel well when taking-fatigue, "brain fog" cheap metal AdvReac Intermediate blistering Uncoded 06/25/24 11:35 with itching Medications Home Medications Medication Instructions Recorded Confirmed Last Taken apixaban 5 mg tablet (Eliquis) 5 mg PO BID 02/06/24 06/25/24 03/12/24 21:00 atorvastatin 20 mg tablet 20 mg PO QAM 02/06/24 06/25/24 03/15/24 09:00 citalopram 20 mg tablet 10 mg PO HS 02/06/24 06/25/24 03/15/24 21:00 hydroxyzine HCl 25 mg tablet 25 mg PO BID PRN Itching 02/06/24 06/25/24 Unknown levothyroxine 75 mcg tablet 75 mcg PO QAM 02/06/24 06/25/24 03/15/24 09:00 (Synthroid) lisinopril 20 mg tablet 20 mg PO HS 02/06/24 06/25/24 03/15/24 21:00 metoprolol tartrate 25 mg tablet 12.5 mg PO HS 02/06/24 06/25/24 03/15/24 21:00 mometasone 0.1 % topical cream 1 applic topical DAILY PRN Dry Skin 02/06/24 06/25/24 Unknown potassium chloride 10 mEq 10 meq PO BID 02/06/24 06/25/24 03/15/24 21:00 tablet,extended release rimegepant 75 mg disintegrating 75 mg PO UD PRN Migraine Headache 02/06/24 06/25/24 Unknown tablet (Nurtec ODT) triamcinolone acetonide 0.025 % 1 applic topical BID PRN Dry Skin 02/06/24 06/25/24 Unknown topical cream valacyclovir 1 gram tablet 1,000 mg PO UD PRN Cold Sores 02/06/24 06/25/24 Unknown (Valtrex) ondansetron HCl 8 mg tablet 8 mg PO Q8H PRN n/v 02/08/24 06/25/24 Unknown oxycodone 5 mg tablet 5 mg PO Q6H PRN pain #30 tabs 04/01/24 06/25/24 Unknown cetirizine 10 mg capsule (Zyrtec) 10 mg PO DAILY PRN Allergy Symptoms 06/25/24 06/25/24 Unknown Past Medical History Medical History Ankylosing spondylitis Aortic valve regurgitation Arthritis Atrial fibrillation followed by Dr. Guido>[place] Depression "situational" GERD (gastroesophageal reflux disease) controlled, stable per pt History of asthma as a child>no inhaler History of colitis more than 20 yrs ago Hyperlipidemia Hypertension controlled, stable per pt Hypothyroidism Migraine Neuropathy left lower leg>mild Nocturnal hypoxia abnormal years ago while living in [place] on home test-denies ay previous sleep apnea testing or supplemental oxygen need/use On anticoagulant therapy Eliquis daily Osteoarthritis of left hip Post-nasal drip chronic cough Pulmonary lesion Seasonal allergies Spinal stenosis see lumbar 11/2023 MRI Tricuspid regurgitation Urinary urgency Patient denies h/o stroke, seizures, heart attack, heart failure, DM, blood clots/DVTs or blood transfusions. Exercise / Class Metabolic Activity III < 4 Walking/Shop/Light housework (denies chest discomfort or shortness of breath with usual activities) Past Family History Family History Other No family history of adverse response to anesthesia Past Surgical History Surgical History H/O hemorrhoidectomy History of anesthesia reaction nausea and headache History of appendectomy History of biopsy mouth-squamous hyperplasia per cardio records History of cardiac ablation for atrial fibrillation (01/2023) done at [facility] History of cataract surgery right/left History of cholecystectomy History of colonoscopy History of dilatation and curettage "several" History of esophagogastroduodenoscopy (EGD) History of hysterectomy History of nasal surgery History of tonsillectomy and adenoidectomy History of tooth extraction Spigelian hernia repaired Status post left hip replacement 03/17/2024 [place] Strabismus repaired>"adult onset" Past Anesthesia History No Family Hx of Anesthesia Complications History of PONV No Hx of Motion Sickness and History of PONV (nausea and headache) Social History Smoking Status: Never smoker Do You Dip or Chew Tobacco: No Hx Alcohol Use: Yes ("rare") alcohol intake frequency: holidays/special occasions only Hx Substance Use: No substance use type: does not use Review of Systems Snoring, denies witnessed apneas. Patient denies chest pain, shortness of breath, dyspnea on exertion, fever, chills, cough, wheezing, or palpitations. Physical Exam Vital Signs Vitals BP 126/58 P 54 TEMP 98.1 SP02 96% on RA RESP 18 Physical Patient resting comfortably in chair in no acute distress, alert and oriented, responding appropriately throughout visit Full cervical extension range of motion without pain TMD 3.5 finger breadths Mallampati Score 2 Dentition: one cap and one lower chipped tooth; denies loose teeth, crowns, implants or bridges Lungs: normal respiratory effort. Good air movement, clear throughout to auscultation, no adventitious breath sounds Cardiac: regular rate and rhythm, no murmurs noted Carotid arteries: negative bruit bilat Lab Results Anesthesia Preop Results Results Anesthesia Widget: WBC 7.97 K/ul (4.8-10.8) 07/04/24 Hgb 10.8 g/dl (12.0-16.0) L 07/04/24 Hct 34.3 % (37.0-47.0) L 07/04/24 Plt 316 K/uL (130-400) 07/04/24 Na 139 mmol/L (136-145) 07/04/24 K 4.2 mmol/L (3.5-5.1) 07/04/24 Cl 108 mmol/L (98-107) H 07/04/24 CO2 27 mmol/L (21-32) 07/04/24 BUN 20 mg/dl (6-23) 07/04/24 Creat 0.84 mg/dl (0.6-1.2) 07/04/24 Glucose Level 91 mg/dl (70-99(Fasting)) 07/04/24 PT 10.3 Seconds (9.0-12.0) 07/04/24 PTT 28 Seconds (21-31) 07/04/24 INR 0.9 (0.9-1.1) 07/04/24 Blood Type B Positive 07/04/24 Antibody Screen NEGATIVE 07/04/24 Testing Electrocardiogram Date: 02/21/24 Sinus bradycardia, rate 49 bpm Nonspecific T wave abnormality Echocardiogram Date: 02/15/23 INO Sinus rhythm EF 60% Mild enlargement of atria, CARYN is free of thrombus Concentric LVH No wall motion abnormalities Mild aortic regurgitation, trileaflet aortic valve. No aortic stenosis Mild atherosclerosis of the ascending and descending aorta No evidence of ASD or PFO Other Testing Chest CT 02/28/24 Multiple scattered calcified granulomas, likely identified on radiograph. No suspicious nodule.
--- NOTE | 2024-12-10 12:44 | PAT Medication Instructions ---
Medication Instructions Date of Service December 10, 2024 Home Medications Medication Instructions Recorded oxycodone 5 mg tablet 5 mg PO Q6H PRN pain #30 tabs 04/01/24 apixaban 5 mg tablet (Eliquis) 5 mg PO BID atorvastatin 20 mg tablet 20 mg PO QAM citalopram 20 mg tablet 10 mg PO HS hydroxyzine HCl 25 mg tablet 25 mg PO BID PRN levothyroxine 75 mcg tablet (Synthroid) 75 mcg PO QAM lisinopril 20 mg tablet 20 mg PO HS metoprolol tartrate 25 mg tablet 12.5 mg PO HS mometasone 0.1 % topical cream 1 applic topical DAILY PRN rimegepant 75 mg disintegrating tablet (Nurtec ODT) 75 mg PO UD PRN triamcinolone acetonide 0.025 % topical cream 1 applic topical BID PRN valacyclovir 1 gram tablet (Valtrex) 1,000 mg PO UD PRN ondansetron HCl 8 mg tablet 8 mg PO Q8H PRN oxycodone 5 mg tablet 5 mg PO Q6H PRN cetirizine 10 mg capsule (Zyrtec) 10 mg PO DAILY PRN Continue as directed rimegepant 75 mg disintegrating tablet (Nurtec ODT) 75 mg PO UD PRN(if needed) valacyclovir 1 gram tablet (Valtrex) 1,000 mg PO UD PRN(if needed) ASK your prescriber and surgeon apixaban 5 mg tablet (Eliquis) 5 mg PO BID(in order for spinal or epidural anesthesia, Eliquis needs to be stopped 72 hours/3 days before surgery. Please check if okay with doctor that prescribes this to you) STOP taking 24 hours before surgery mometasone 0.1 % topical cream 1 applic topical DAILY PRN triamcinolone acetonide 0.025 % topical cream 1 applic topical BID PRN DO NOT take the morning of surgery hydroxyzine HCl 25 mg tablet 25 mg PO BID PRN cetirizine 10 mg capsule (Zyrtec) 10 mg PO DAILY PRN Take morning of surgery With a small sip of water, OTHERWISE NOTHING TO EAT OR DRINK AFTER MIDNIGHT: atorvastatin 20 mg tablet 20 mg PO QAM levothyroxine 75 mcg tablet (Synthroid) 75 mcg PO QAM ondansetron HCl 8 mg tablet 8 mg PO Q8H PRN(if needed) oxycodone 5 mg tablet 5 mg PO Q6H PRN(if needed) Take evening before surgery citalopram 20 mg tablet 10 mg PO HS hydroxyzine HCl 25 mg tablet 25 mg PO BID PRN(if needed) lisinopril 20 mg tablet 20 mg PO HS metoprolol tartrate 25 mg tablet 12.5 mg PO HS ondansetron HCl 8 mg tablet 8 mg PO Q8H PRN(if needed) oxycodone 5 mg tablet 5 mg PO Q6H PRN(if needed) Other Notes If you have any questions please call us at [phone] or [phone] or [phone] or [phone]
--- NOTE | 2024-12-10 13:02 | Anesthesiology Consultation ---
Date of Service December 10, 2024 Assessment & Plan (1) Encounter for pre-operative examination: - cardiology office visit 12/11/24: "...hypertension. atrial fibrillation status post ablation...routine evaluation...doing well...doing excellent. No medical changes..." - internal medicine office visit 11/12/24: "...doing well...some mouth soreness...nystatin swish and spit...no change to medications at this time...return in about 6 months..." - chlorhexidine allergy: chlorhexidine wipes NOT provided at PAT visit. - Outpatient joint assessment: Patient is currently scheduled for inpatient pathway. If re-evaluated and patient/surgeon requests outpatient pathway, patient is not advised candidate for outpatient joint program. Chart Review Chart Review: Acceptable Risk for Surgery and Patient seen in Pre Admission Testing Teaching & Discussion Pre-Anesthesia Teaching/Discussion Notes: Instructed NPO after midnight before surgery, except medications with 15 cc of water. Medication instructions provided according to the PAT guidelines. History Surgery Operation Date: 07/28/24 12:00 Proposed Procedures p Right Anatomic Total Shoulder Arthroplasty versus Right Reverse Total Shoulder Arthroplasty - Rafael Douglas DO Operation Date: 01/05/25 08:00 Proposed Procedures p Right Total Hip Arthroplasty Anterior - Rafael Douglas DO Height/Weight Height: 5 ft 4 in Weight: 78 kg Allergies Allergy/AdvReac Type Severity Reaction Status Date / Time butorphanol [From Stadol] Allergy Severe auditory Verified 12/10/24 12:32 hallucinations dexamethasone Allergy Severe intense Verified 12/10/24 12:32 pelvic burning chlorhexidine Allergy Intermediate Itching Verified 12/10/24 12:32 morphine Allergy Intermediate itchiness Verified 12/10/24 12:32 latex Allergy Mild itching/blister Verified 12/10/24 12:32 skin ondansetron [From Zofran] AdvReac Intermediate IV Verified 12/10/24 12:32 zofran-gastroparesis per patient adhesive tape AdvReac Mild Itching Verified 12/10/24 12:32 ivory Allergy Intermediate Hives Uncoded 12/10/24 12:32 anti-depressants AdvReac Intermediate does not Uncoded 12/10/24 12:32 feel well when taking-fatigue, "brain fog" cheap metal AdvReac Intermediate blistering Uncoded 12/10/24 12:32 with itching Medications Home Medications Medication Instructions Recorded Confirmed Last Taken apixaban 5 mg tablet (Eliquis) 5 mg PO BID 02/06/24 12/10/24 03/12/24 21:00 atorvastatin 20 mg tablet 20 mg PO QAM 02/06/24 12/10/24 03/15/24 09:00 citalopram 20 mg tablet 10 mg PO HS 02/06/24 12/10/24 03/15/24 21:00 hydroxyzine HCl 25 mg tablet 25 mg PO BID PRN Itching 02/06/24 12/10/24 Unknown levothyroxine 75 mcg tablet 75 mcg PO QAM 02/06/24 12/10/24 03/15/24 09:00 (Synthroid) lisinopril 20 mg tablet 20 mg PO HS 02/06/24 12/10/24 03/15/24 21:00 metoprolol tartrate 25 mg tablet 12.5 mg PO HS 02/06/24 12/10/24 03/15/24 21:00 mometasone 0.1 % topical cream 1 applic topical DAILY PRN Dry Skin 02/06/24 12/10/24 Unknown rimegepant 75 mg disintegrating 75 mg PO UD PRN Migraine Headache 02/06/24 12/10/24 Unknown tablet (Nurtec ODT) triamcinolone acetonide 0.025 % 1 applic topical BID PRN Dry Skin 02/06/24 12/10/24 Unknown topical cream valacyclovir 1 gram tablet 1,000 mg PO UD PRN Cold Sores 02/06/24 12/10/24 Unknown (Valtrex) ondansetron HCl 8 mg tablet 8 mg PO Q8H PRN n/v 02/08/24 12/10/24 Unknown oxycodone 5 mg tablet 5 mg PO Q6H PRN pain #30 tabs 04/01/24 12/10/24 Unknown cetirizine 10 mg capsule (Zyrtec) 10 mg PO DAILY PRN Allergy Symptoms 06/25/24 12/10/24 Unknown Past Medical History Medical History Ankylosing spondylitis Aortic valve regurgitation Arthritis Atrial fibrillation followed by Dr. Hay>Joseph > controlled since ablation per pt Depression "situational" GERD (gastroesophageal reflux disease) controlled, stable per pt History of asthma as a child>no inhaler History of colitis more than 20 yrs ago Hyperlipidemia Hypertension controlled, stable per pt Hypothyroidism Migraine Neuropathy left lower leg>mild Nocturnal hypoxia abnormal years ago while living in [place] on home test-denies ay previous sleep apnea testing or supplemental oxygen need/use On anticoagulant therapy Eliquis daily Osteoarthritis of left hip Post-nasal drip chronic cough Pulmonary lesion Seasonal allergies Spinal stenosis see lumbar 11/2023 MRI Tricuspid regurgitation Urinary urgency Patient denies h/o stroke, seizures, heart attack, heart failure, DM, blood clots/DVTs or blood transfusions. Exercise / Class Metabolic Activity III < 4 Walking/Shop/Light housework (less than 4 steps in home, denies chest discomfort or shortness of breath with usual activities) Past Family History Family History Other No family history of adverse response to anesthesia Past Surgical History Surgical History H/O hemorrhoidectomy History of anesthesia reaction nausea and headache History of appendectomy History of biopsy mouth-squamous hyperplasia per cardio records History of cardiac ablation for atrial fibrillation (01/2023) done at [facility] History of cataract surgery right/left History of cholecystectomy History of colonoscopy History of dilatation and curettage "several" History of esophagogastroduodenoscopy (EGD) History of hysterectomy History of nasal surgery History of tonsillectomy and adenoidectomy History of tooth extraction Spigelian hernia repaired Status post left hip replacement 03/17/2024 [place] Strabismus repaired>"adult onset" Past Anesthesia History No Hx of Anesthesia Complications and No Family Hx of Anesthesia Complications History of PONV No Hx of Motion Sickness and History of PONV Social History Smoking Status: Never smoker Do You Dip or Chew Tobacco: No Hx Alcohol Use: No Hx Substance Use: No substance use type: does not use Review of Systems Patient denies chest pain, shortness of breath, dyspnea on exertion, fever, chills, cough, wheezing, or palpitations. Physical Exam Vital Signs Vitals BP 136/68 P 55 TEMP 98.3 SP02 98% on RA RESP 18 Physical Patient resting comfortably in chair in no acute distress, alert and oriented, responding appropriately throughout visit Full cervical extension range of motion without pain TMD 3.5 finger breadths Mallampati Score 3 Dentition: chipped teeth and one cap, denies chipped or loose teeth, crowns, implants or bridges Lungs: normal respiratory effort. Good air movement, clear throughout to auscultation, no adventitious breath sounds Cardiac: regular rate and rhythm, 2/6 diastolic murmur, no gallops or rubs Carotid arteries: negative bruit bilat Lab Results Anesthesia Preop Results Results Anesthesia Widget: WBC 6.45 K/ul (4.8-10.8) 12/10/24 Hgb 12.0 g/dl (12.0-16.0) 12/10/24 Hct 35.5 % (37.0-47.0) L 12/10/24 Plt 257 K/uL (130-400) 12/10/24 Na 141 mmol/L (136-145) 12/10/24 K 3.9 mmol/L (3.5-5.1) 12/10/24 Cl 107 mmol/L (98-107) 12/10/24 CO2 26 mmol/L (21-32) 12/10/24 BUN 15 mg/dl (6-23) 12/10/24 Creat 0.88 mg/dl (0.6-1.2) 12/10/24 Glucose Level 98 mg/dl (70-99(Fasting)) 12/10/24 PT 10.9 Seconds (9.0-12.0) 12/10/24 PTT 28 Seconds (21-31) 12/10/24 INR 1.0 (0.9-1.1) 12/10/24 Blood Type B Positive 12/10/24 Antibody Screen NEGATIVE 12/10/24 Testing Electrocardiogram Date: 02/21/24 Sinus bradycardia, rate 49 bpm Nonspecific T wave abnormality Echocardiogram Date: 02/15/23 INO Sinus rhythm EF 60% Mild enlargement of atria, CARYN is free of thrombus Concentric LVH No wall motion abnormalities Mild aortic regurgitation, trileaflet aortic valve. No aortic stenosis Mild atherosclerosis of the ascending and descending aorta No evidence of ASD or PFO Other Testing Chest CT 02/28/24 Multiple scattered calcified granulomas, likely identified on radiograph. No suspicious nodule.
--- NOTE | 2025-01-05 06:43 | History & Physical Bridge Note ---
Date of Service January 05, 2025 History & Physical Bridge Note I have examined the patient, reviewed the History & Physical and in the interval since the performance of the History & Physical I have noted the following changes of clinical significance: no changes noted
[~2025-01-05 06:51] MED LIST: BUPIVACAINE 0.5 % 5 MG/1 ML PF 10ML VIAL ONE; MIDAZOLAM HCL 1 MG/ML 2ML VIAL ONE; dexAMETHasone**PF** 10 MG/ML VIAL IV SCH
[2025-01-05] MEDS ORDERED: KETAMINE HCL 10MG/ML SYR ONE (06:53)
[2025-01-05] MEDS ORDERED: PROPOFOL IV EMULSION 10 MG/ML 20 ML VIAL IV ONE ×3 (06:54→09:28)
[2025-01-05] MEDS ORDERED: PHENYLEPHRINE HCL 10 MG/ML VIAL ONE (06:54)
[2025-01-05] MEDS: FAMOTIDINE 20 MG TAB PO SCH (07:34)
[2025-01-05] MEDS ORDERED: ATROPINE SULFATE 0.1 MG/ML 10ML SYR IV PRN (07:34)
[2025-01-05] MEDS: ACETAMINOPHEN 500 MG TAB PO SCH ×2 (07:34→13:27)
[2025-01-05] MEDS: GABAPENTIN 300 MG CAP PO SCH (07:34)
[2025-01-05] MEDS ORDERED: ONDANSETRON INJ 2 MG/ML 2 ML VIAL IV PRN (07:34)
[2025-01-05] MEDS: LR 60ML/HR IV SCH (07:55)
[2025-01-05] MEDS: TRANEXAMIC ACID 1,000 MG **IV Pre-op IV SCH (07:56)
[2025-01-05] MEDS: ORTHO JOINT ANESTHETIC ONE (08:50)
[2025-01-05] MEDS: ROPIV 0.5% 246mg, Ketorolac 30mg, EPINEPHrine 0.5mg in NSS INFIL SCH (09:08)
--- NOTE | 2025-01-05 09:19 | Operative Report ---
PG Post Operative Report Pre & Post Diagnosis Operation Date: 01/05/25 08:00 Pre-Op Diagnosis: Osteoarthritis of the right hip Post-Op Diagnosis: Osteoarthritis of the right hip I identified the patient and participated in the time-out.: Yes Procedure Operation Date: 01/05/25 08:00 Actual Procedures p Right Anterior Total Hip Arthroplasty(Right) - Rafael Douglas DO Surgeon Rafael Douglas DO Table Top Tile Setter Kimi Ledbetter PA-C Estimated Blood Loss 150 Findings Consistent with Post-Op Diagnosis Specimens Right femoral head Description of Procedure Implants used I used a ZimmerBiomet total hip arthroplasty system with a size 2 standard offset Z1 stem, a 48 mm G7 cup, an E1 polyethylene liner, a 32 mm ceramic head w ith a 0 neck. Delfina arrived at the hospital for the above procedure. She was seen in the preoperative holding area and the operative extremity was identified and signed. She was given a spinal anesthetic, a preoperative antibiotic, and TXA. She was then taken back to the operating room and laid on the table in the supine position. She was given basic sedation. The operative leg was secured to a Puristst leg positioner. The hip was then prepped and draped in sterile fashion. A timeout was done and the patient and the operative extremity was properly identified. An anterior approach was used. Dissection was taken down through the fascia and the tensor muscle belly was retracted laterally and the rectus was retracted medially. The circumflex vessels were identified and ligated. The capsule was then incised and tagged for later repair. The femoral neck was then cut and the femoral head was removed. The acetabulum was exposed. Time was spent doing a complete circumferential labral release. Sequential reaming of the acetabulum up to a size 47 reamer was done. Final reamings were done under fluoroscopy to ensure appropriate version. A Biomet 48 mm G7 cup was then impacted into place. The E1 polyethylene liner was then snapped into place. Surrounding soft tissues were then injected with 100 cc of an orthopedic pain control cocktail. The proximal femur was then exposed. Sequential broaching up to a size 2 broach was done. Off that broach a size 32 head with a 0 neck was trialed. The hip was reduced and fluoroscopic images showed anatomic alignment of the implants in acceptable length. The broach was removed. The final size 2 standard offset Z1 stem was then impacted into place. A ceramic 32 mm head with a 0 neck was then impacted onto the stem and the hip was reduced. Final fluoroscopic images showed anatomic alignment of the hip. The capsule was then closed with #1 Vicryl suture. A dilute betadyne lavage was then done for 3 minutes. The joint was then irrigated with normal saline solution. The fascia was closed with #1 PDS suture. Skin was closed with 2-0 Vicryl, Gunlock Zipline, and a Silverlon dressing. She was then transferred to a hospital bed and taken to the post anesthesia care unit in stable condition. She tolerated the procedure well. Kimi Ledbetter PA-C, was present for the entire procedure. He was critical for patient positioning, prepping, draping, retraction exposure, wound closure and application of sterile dressing. I attest to the content of the Intraoperative Record and any orders documented therein. Any exceptions are noted below.
--- NOTE | 2025-01-05 10:29 | XRay Report ---
XR hip 1V RT w pelvis CLINICAL HISTORY: IN PACU - Post Surgical COMPARISON: 03/17/2024 FINDINGS: Bilateral hip prostheses show no hardware complication. There is expected soft tissue gas on the right. IMPRESSION: Unremarkable postoperative exam. ACT 112: Negative or not required by law. Electronically signed by: Parviz Hankins M.D. 01/05/2025 10:27 AM
--- NOTE | 2025-01-05 10:29 | Fluoroscopy Report ---
FL hip RT 1V CLINICAL HISTORY: RT ANTERIOR HIP COMPARISON STUDY: None FLUOROSCOPY TIME: 10 seconds FLUOROSCOPY IMAGES: 1 EXPOSURE DOSE: 1.4 mGy FINDINGS: Fluoroscopy was provided for right hip prosthesis. IMPRESSION: Intraoperative fluoroscopy. ACT 112: Negative or not required by law. Electronically signed by: Parviz Hankins M.D. 01/05/2025 10:28 AM
[2025-01-05] MEDS ORDERED: TRIAMCINOLONE ACET 0.025% CR 15 GM TUBE TOP PRN (12:20)
[2025-01-05] MEDS ORDERED: NALOXONE HCL 0.4 MG/1 ML VIAL/CARP IV PRN (12:20)
[2025-01-05] MEDS ORDERED: ALUMINUM/MAGNESIUM SUSP 30 ML UDC PO PRN (12:20)
[2025-01-05] MEDS ORDERED: MAGNESIUM HYDROXIDE SUSP 30 ML UDC PO PRN (12:20)
[2025-01-05] MEDS ORDERED: METOCLOPRAMIDE HCL INJ 5 MG/ML 2 ML VIAL IV PRN (12:20)
[2025-01-05] MEDS ORDERED: CETIRIZINE HCL 10 MG TABLET PO PRN (12:31)
[2025-01-05] MEDS ORDERED: TRIAMCINOLONE ACET 0.1% CR 15 GM TUBE EXT PRN (12:32)
[2025-01-05] MEDS: LR 500ML BOLUS, THEN 15ML/HR IV SCH (12:47)
[2025-01-05] MEDS: SODIUM CHLORIDE 0.9% 1,000 ML IV SCH (13:26)
[2025-01-05] MEDS: KETOROLAC TROMETHAMINE 15 MG/ML VIAL IV SCH (13:28)
--- NOTE | 2025-01-05 13:49 | Anesthesiology Progress Note ---
Date of Service January 05, 2025 Anesthesia Post Procedure Vital Signs Vital Signs: Temp Pulse Pulse Resp BP BP Pulse Ox 01/05/25 13:10 36.3 C L 66 14 120/73 100 01/05/25 12:20 36.7 C 60 18 134/80 100 01/05/25 12:10 36.5 C 60 14 132/76 100 01/05/25 11:45 61 16 140/64 100 01/05/25 11:30 55 L 18 127/65 100 01/05/25 11:15 36.5 C 60 21 111/78 100 01/05/25 11:00 60 16 121/62 100 01/05/25 10:50 62 15 145/62 H 100 01/05/25 10:40 62 18 119/79 100 01/05/25 10:30 72 21 138/100 100 01/05/25 10:20 67 28 H 121/57 L 100 01/05/25 10:10 70 17 122/58 L 100 01/05/25 10:00 68 20 120/51 L 100 01/05/25 09:50 36 C L 67 23 128/52 L 100 01/05/25 07:03 36.6 C 66 20 165/93 H 97 O2 Del Method O2 Flow Rate 01/05/25 13:10 Room Air 01/05/25 12:20 Nasal Cannula 01/05/25 12:10 Nasal Cannula 3 01/05/25 11:45 Nasal Cannula 2 01/05/25 11:30 Nasal Cannula 2 01/05/25 11:15 Nasal Cannula 2 01/05/25 11:00 Nasal Cannula 2 01/05/25 10:50 Nasal Cannula 2 01/05/25 10:40 Nasal Cannula 2 01/05/25 10:30 Nasal Cannula 2 01/05/25 10:20 Nasal Cannula 2 01/05/25 10:10 Nasal Cannula 2 01/05/25 10:00 Room Air 01/05/25 09:50 Room Air 01/05/25 07:03 Room Air Pain Intensity Head: Pain Intensity: 2 Transfer of Care Handoff Completed per policy Notes Mental Status: alert / awake / arousable Patient Amnestic to Procedure: Yes Nausea / Vomiting: adequately controlled Pain: adequately controlled Airway Patency, RR, SpO2: stable & adequate BP & HR: stable & adequate Hydration State: stable & adequate Anesthetic Complications: no major complications apparent
[2025-01-05] MEDS: ONDANSETRON INJ 2 MG/ML 2 ML VIAL IV PRN (14:54)
[2025-01-05] MEDS: SENNA 8.6 MG TAB PO SCH (20:28)
[2025-01-05] MEDS: DOCUSATE SODIUM 100 MG CAP PO SCH (20:28)
[2025-01-05] MEDS: CITALOPRAM 20 MG TAB PO SCH (20:28)
[2025-01-05] MEDS: METOPROLOL TARTRATE 25 MG TAB PO SCH (20:28)
[2025-01-06] MEDS: ONDANSETRON 4 MG OD TAB PO PRN (03:51)
[2025-01-06] MEDS ORDERED: PROMETHAZINE HCL 25 MG TAB PO PRN (07:48)
--- NOTE | 2025-01-06 08:45 | Orthopedic Progress Note ---
Date of Service January 06, 2025 Assessment & Plan (1) S/P total right hip arthroplasty: * Continue Current Treatment * Disposition: home * Daily treatment: Physical Therapy/ Occupational Therapy per protocol * Weight bearing status: WBAT, no precautions * Continue to monitor for ABLA * Pain control * DVT prophylaxis, ASA/ * Office/hospital f/u 2 weeks for progress check and staple/suture removal * Plan for discharge today pending PT/OT clearance Subjective .Active Problems: S/p right PAWAN POD 1 74 y/o female s/p right PAWAN. Doing well overall, pain managed and improved function. Quite nauseous this morning. Denies fever/chills, chest pain/SOB, vo miting. Otherwise no complaints. Review of Systems All systems reviewed & are unremarkable except as noted in HPI & below. Physical Exam . * General: Alert and oriented, no acute distress * Constitutional: well-developed, well-nourished. * Respiratory: Normal respiratory effort, no distress * Gastrointestinal: No tenderness to palpation, no rigidity or guarding. * Skin: No rash or lesion. * Neurologic: Grossly normal * Musculoskeletal: Right hip surgical dressing CDI, not removed for exam. Otherwise no obvious deformity or overlying skin changes. Diffuse TTP proximal thigh and hip region. Otherwise no specific tenderness of distal thigh, lower leg, foot/ankle. AROM hip flexion intact. AROM foot/ankle intact. Sensation intact plantar/dorsal foot. Brisk capillary refill. Results & Data Results & Data Laboratory Results . Diagnostic Findings . Hip X-Ray 01/05/25 00:00 FL hip RT 1V CLINICAL HISTORY: RT ANTERIOR HIP COMPARISON STUDY: None FLUOROSCOPY TIME: 10 seconds FLUOROSCOPY IMAGES: 1 EXPOSURE DOSE: 1.4 mGy FINDINGS: Fluoroscopy was provided for right hip prosthesis. IMPRESSION: Intraoperative fluoroscopy. ACT 112: Negative or not required by law. Electronically signed by: Parviz Hankins M.D. 01/05/2025 10:28 AM Hip/Pelvis X-Ray 01/05/25 09:57 XR hip 1V RT w pelvis CLINICAL HISTORY: IN PACU - Post Surgical COMPARISON: 03/17/2024 FINDINGS: Bilateral hip prostheses show no hardware complication. There is expected soft tissue gas on the right. IMPRESSION: Unremarkable postoperative exam. ACT 112: Negative or not required by law. Electronically signed by: Parviz Hankins M.D. 01/05/2025 10:27 AM PG Care Time/CCT Total # of Minutes Spent Total Time Spent with Patient: Total time spent is greater than 50% in coordination of care (as documented) at patient's floor/unit and/or counseling patient: Coding Level of Care Code 82660 Post Operative Follow-Up Diagnoses S/P total right hip arthroplasty Z96.641
[2025-01-06] MEDS: LEVOTHYROXINE SODIUM 75 MCG TABLET PO SCH (09:53)
[2025-01-06] MEDS: PROMETHAZINE 25 MG/51 ML BAG IV PRN (11:16)
[2025-01-06] MEDS: APIXABAN 5 MG TABLET PO SCH (11:54)
[2025-01-06] MEDS: ATORVASTATIN 20 MG TAB PO SCH (11:55)
[2025-01-06] MEDS: MULTIVITAMIN TAB PO SCH (11:55)
[2025-01-06] MEDS: RIMEGEPANT SULFATE 75 MG OD TAB PO PRN (15:30)
--- NOTE | 2025-01-07 09:15 | Orthopedic Progress Note ---
Date of Service January 07, 2025 Assessment & Plan (1) S/P total right hip arthroplasty: * Continue Current Treatment * Disposition: home * Daily treatment: Physical Therapy/ Occupational Therapy per protocol * Weight bearing status: WBAT, no precautions * Continue to monitor for ABLA * Pain control * DVT prophylaxis, ASA * Office/hospital f/u 2 weeks for progress check and staple/suture removal * Plan for discharge today pending PT/OT clearance Subjective Active Problems: S/p right PAWAN POD 2 74 y/o female s/p right PAWAN. Doing well overall, pain managed and improved function. Nausea improved, but anxious about getting moving with PT. Denies fever/chills, chest pain/SOB, vomiting. Otherwise no complaints. Review of Systems All systems reviewed & are unremarkable except as noted in HPI & below. Physical Exam * Musculoskeletal: Right hip surgical dressing CDI, not removed for exam. Otherwise no obvious deformity or overlying skin changes. Diffuse TTP proximal thigh and hip region. Otherwise no specific tenderness of distal thigh, lower leg, foot/ankle. AROM hip flexion intact. AROM foot/ankle intact. Sensation intact plantar/dorsal foot. Brisk capillary refill. Results & Data Results & Data Laboratory Results . Diagnostic Findings . PG Care Time/CCT Total # of Minutes Spent Total Time Spent with Patient: Total time spent is greater than 50% in coordination of care (as documented) at patient's floor/unit and/or counseling patient: Coding Level of Care Code 69741 Post Operative Follow-Up Diagnoses S/P total right hip arthroplasty Z96.641
[2025-01-07] MEDS: diphenhydrAMINE Capsule 25 MG CAP PO PRN (18:10)
--- NOTE | 2025-01-08 09:08 | Orthopedic Progress Note ---
Date of Service January 08, 2025 Assessment & Plan (1) S/P total right hip arthroplasty: * Continue Current Treatment * Disposition: home * Daily treatment: Physical Therapy/ Occupational Therapy per protocol * Weight bearing status: WBAT, no precautions * Continue to monitor for ABLA * Pain control * DVT prophylaxis, ASA * Office/hospital f/u 2 weeks for progress check and staple/suture removal * Plan for discharge today pending rehab authorization Subjective . Active Problems: S/p right PAWAN POD 3 74 y/o female s/p right PAWAN. Doing well overall, pain managed and improved function. Nausea improved, but anxious about getting moving with PT. Denies fever/chills, chest pain/SOB, vomiting. Otherwise no complaints. Review of Systems All systems reviewed & are unremarkable except as noted in HPI & below. Physical Exam . * Musculoskeletal: Right hip surgical dressing CDI, not removed for exam. Otherwise no obvious deformity or overlying skin changes. Diffuse TTP proximal thigh and hip region. Otherwise no specific tenderness of distal thigh, lower leg, foot/ankle. AROM hip flexion intact. AROM foot/ankle intact. Sensation intact plantar/dorsal foot. Brisk capillary refill. Results & Data Results & Data Laboratory Results . Diagnostic Findings . Hip X-Ray 01/05/25 00:00 FL hip RT 1V CLINICAL HISTORY: RT ANTERIOR HIP COMPARISON STUDY: None FLUOROSCOPY TIME: 10 seconds FLUOROSCOPY IMAGES: 1 EXPOSURE DOSE: 1.4 mGy FINDINGS: Fluoroscopy was provided for right hip prosthesis. IMPRESSION: Intraoperative fluoroscopy. ACT 112: Negative or not required by law. Electronically signed by: Parviz Hankins M.D. 01/05/2025 10:28 AM Hip/Pelvis X-Ray 01/05/25 09:57 XR hip 1V RT w pelvis CLINICAL HISTORY: IN PACU - Post Surgical COMPARISON: 03/17/2024 FINDINGS: Bilateral hip prostheses show no hardware complication. There is expected soft tissue gas on the right. IMPRESSION: Unremarkable postoperative exam. ACT 112: Negative or not required by law. Electronically signed by: Parviz Hankins M.D. 01/05/2025 10:27 AM PG Care Time/CCT Total # of Minutes Spent Total Time Spent with Patient: Total time spent is greater than 50% in coordination of care (as documented) at patient's floor/unit and/or counseling patient: Coding Level of Care Code 95351 Post Operative Follow-Up Diagnoses S/P total right hip arthroplasty Z96.641
--- NOTE | 2025-01-09 08:26 | Orthopedic Progress Note ---
Date of Service January 09, 2025 Assessment & Plan (1) S/P total right hip arthroplasty: * Continue Current Treatment * Disposition: home * Daily treatment: Physical Therapy/ Occupational Therapy per protocol * Weight bearing status: WBAT, no precautions * Ok to shower * May remove Silverlon dressing tomorrow * Continue to monitor for ABLA * Pain control * DVT prophylaxis, ASA * Office/hospital f/u 2 weeks for progress check and staple/suture removal * Plan for discharge today pending rehab authorization Subjective Active Problems: S/p right PAWAN POD 4 74 y/o female s/p right PAWAN. Doing well overall, pain managed and improved function. Nausea improved, but anxious about getting moving with PT. Denies fever/chills, chest pain/SOB, vomiting. Otherwise no complaints. Review of Systems All systems reviewed & are unremarkable except as noted in HPI & below. Physical Exam * Musculoskeletal: Right hip surgical dressing CDI, not removed for exam. Otherwise no obvious deformity or overlying skin changes. Diffuse TTP proximal thigh and hip region. Otherwise no specific tenderness of distal thigh, lower leg, foot/ankle. AROM hip flexion intact. AROM foot/ankle intact. Sensation intact plantar/dorsal foot. Brisk capillary refill. Results & Data Results & Data Laboratory Results . Diagnostic Findings . PG Care Time/CCT Total # of Minutes Spent Total Time Spent with Patient: Total time spent is greater than 50% in coordination of care (as documented) at patient's floor/unit and/or counseling patient: Coding Level of Care Code 77091 Post Operative Follow-Up Diagnoses S/P total right hip arthroplasty Z96.641
[2025-01-09 08:55] VITALS: PULSE 64
[2025-01-09 12:50] VITALS: BP 140/60; RESP 18; TEMP 97.9; O2SAT 98
== END 2025-01-09 15:08 | DRG 470 ==
LOC: ASU 06:51 → 3E 06:51
DX: M16.11 Unilateral primary osteoarthritis, right hip; Z91.040 Latex allergy status; Z79.01 Long term (current) use of anticoagulants; Z88.5 Allergy status to narcotic agent; K21.9 Gastro-esophageal reflux disease without esophagitis; E03.9 Hypothyroidism, unspecified; I10 Essential (primary) hypertension; Z79.890 Hormone replacement therapy; Z96.642 Presence of left artificial hip joint; I48.91 Unspecified atrial fibrillation